=== PATIENT | female | born 1990 | race Caucasian/White ===

== ENCOUNTER 2022-02-04 19:38 | Emergency (ER) | payer OTHER, SELFPAY ==
--- NOTE | ~2022-02-04 | XR_ITS ---
EXAMINATION: XR KNEE, LEFT CLINICAL INFORMATION: Twisting knee pain, heard pop, unable to bear weight COMPARISON: None TECHNIQUE: Four views of the left knee. FINDINGS: Bones and soft tissues are normal. No fracture or joint effusion. Alignment is anatomic. Joint spaces are well maintained. No abnormal soft tissue calcification. XR/XR knee LT 4V IMPRESSION: Unremarkable plain radiographs of the left knee.
[2022-02-04 20:15] VITALS: BP 124/87; PULSE 82; RESP 16; TEMP 36.2; O2SAT 100; BMI 29.2
--- NOTE | 2022-02-04 21:53 | ED.LOWEXIN ---
HPI - Extremity Injury (Lower) General Chief Complaint: Extremity Injury, Lower Stated Complaint: left knee injury Time Seen by Provider: 02/04/22 21:53 Source: patient Mode of arrival: ambulatory Limitations: no limitations History of Present Illness HPI Narrative: 31-year-old female presents to the emergency department complaints of left knee pain status post softball related injury. Patient tells me she was going to slide into 3rd base then she changed her mind and jerked backwards she fell a pop in her knee falling to the ground, when she fell she did not hit her head. Patient tells me she initially felt pain however at this time she does not report pain she reports some discomfort with ambulation but she tells me it feels like her left knee is jelly. She denies numbness or tingling. She has no other medical complaints at this time. Denies headache, vision changes, nausea, vomiting, dizziness. Patient tells me when she fell she could not get up on her own and required help. MD complaint: knee injury Onset (ago): hour(s) (3) Place: street/outdoors (Softball) Severity: moderate Relieving factors: nothing Exacerbating factors: weight bearing Associated symptoms: snap/pop sensation Other symptoms: none Related Data Allergies Allergy/AdvReac Type Severity Reaction Status Date / Time Unable to Assess Allergy Unverified 02/04/22 22:12 Review of Systems Review of Systems: Constitutional : No Weight loss, No Fever, No Chills, No Fatigue, No Malaise ENT/Mouth : No sore throat, No Rhinorrhea Eyes: No Eye Pain, No Swelling, No Redness Cardiovascular : No Chest Pain, No SOB, No Dyspnea on Exertion, No Orthopnea, No Edema, No Palpitations Respiratory : No Cough, No Sputum, No Wheezing Gastrointestinal : No Nausea, No Vomiting, No Diarrhea, No Constipation, No abdominal Pain, No Hematochezia, No Melena Genitourinary : No Dysuria, No Urinary Frequency, No Hematuria, Musculoskeletal : + joint pain, No Myalgias, + Joint Swelling Skin : No Skin Lesions, No rash Neuro : No Weakness, No Numbness, No Dizziness, No Headache All other systems reviewed and are negative Yes all other systems are reviewed and are negative [facility] Past Medical History Attestation statement: The following information was validated with the patient. Source: old records reviewed and nursing notes reviewed Social History Social History Advance Directives: No Physical Exam Vital Signs: Vital Signs: Last Vital Signs Temp 97.2 F 02/04/22 20:15 Pulse 82 02/04/22 20:15 Resp 16 02/04/22 20:15 BP 124/87 02/04/22 20:15 Pulse Ox 100 02/04/22 20:15 O2 Del Method 02/04/22 20:15 BMI result Body Mass Index 29.2 Vital signs stable Appearance: Alert.? Oriented X3.? No acute distress.? Head: Normocephalic, atraumatic, no step-offs or deformities Eyes: Pupils equal, round and reactive to light.? ENT: Pharynx normal.? Neck: Normal inspection.? Neck supple.? CVS: Normal heart rate and rhythm.? Pulses normal.? Respiratory: No respiratory distress.? Breath sounds normal.? Abdomen: Soft and nontender.? Skin: Skin warm and dry.? Normal skin color.? Normal skin turgor.? Extremities: No lower extremity edema.? 5/5 strength to bilateral upper and lower extremities + pain with valgus and varus manipulation, positive Apley. Slight swelling noted to the left knee, normal right knee. No step-offs or deformities. Extremities warm. 2+ dorsalis pedis and posterior tibialis pulses equal and bilateral. 2+ patellar pulses equal in bilateral. No foot drop b/l. Back: No midline tenderness, no C-spine tenderness, full range of motion, no CVA tenderness bilaterally Neuro: Oriented X 3.? No motor deficit.? No sensory deficit. CN 2-12 intact Course Reevaluation(s) Reevaluation #1: Patient placed in a knee immobilizer, given crutches, educated on how to properly use them. Given Toradol for pain/discomfort. Advised to follow up with Orthopedics, explained to her that her x-rays were negative however there is concern for ligament or tendon involvement for that reason she will likely require an MRI for further evaluation. Advised her to not bear weight. At this time I feel comfortable discharge home outlined worrisome signs and symptoms on discharge. Time: 22:16 MDM - Extremity Injury (Lower) MDM Narrative Medical decision making narrative: [id number] 31-year-old female presents with a soft fall related injury reporting left knee pain worse with ambulation, prior to her arrival this happened. Physical examination with discomfort to left knee with valgus and varus manipulation, positive Apley test. No step-offs or deformities. Normal pulses, capillary refill intact. Neurovascularly intact. No foot drop. Patient tells me she is unable to bear weight on the left lower extremity. Concern for meniscus injury therefore patient will be placed in a knee immobilizer and will be given crutches. Reached out to Aixa jurado who agress with plan, patient will see ortho outpatient for fu Medical Records Attestation: I reviewed the patient's medical records. Lab Data Attestation: I reviewed the patient's lab results. Critical Care Time Critical Care Time Critical Care Time: Yes Total Critical Care Time: 35 Attestation: I attest to this time spent taking care of the patient, obtaining history, physical, reviewing labs, imaging, speaking to specialist. Discharge Plan Discharge Clinical Impression: Acute knee pain Patient Disposition: Home, Self-Care Instructions: Crutch Instructions (ED), Knee Pain (ED), R.I.C.E. Treatment (ED) Additional Instructions: Take your medications as prescribed. Follow-up with your primary care provider this week. Follow-up with orthopedics in 1-3 days. Return to the emergency department with new or worsening symptoms. Such as fevers, chills, chest pain, shortness of breath, nausea, vomiting, dizziness, headache, vision changes, lethargy, numbness, tingling, severe pain. Please take your knee brace off at night. You can take ibuprofen every 6 hours, Tylenol every 4 as needed for pain or discomfort. Your x-ray was normal however, there was concern for ligament or tendon injury based off of the mechanism of injury and her physical exam, you may require an MRI therefore you should follow-up with orthopedics as soon as possible. In case of emergency call 911 Referrals: [facility] [Provider Group] - 1 day Physician,Mike J [Primary Care Provider] - 2 days
[2022-02-04] MEDS: Ketorolac Tromethamine 15 MG/ML VIAL 30 MG IM (23:23)
== END 2022-02-05 00:17 | disposition home or self-care (01) ==
PROVIDERS: Emergency Provider Internal Medicine
DX: G89.11 Acute pain due to trauma (principal); M25.562 Pain in left knee
CPT/HCPCS: 73564; 96372; 99283; 99284; J1885

== ENCOUNTER 2022-02-20 09:51 | Outpatient (REF) | payer OTHER, SELFPAY ==
--- NOTE | ~2022-02-20 | MR_ITS ---
EXAMINATION: MR KNEE WITHOUT CONTRAST, LEFT CLINICAL INFORMATION: Sprain of anterior cruciate ligament. Stiffness and weakness. Instability of left knee. COMPARISON: None. TECHNIQUE: MRI of the knee without contrast was performed using routine sequences on a high-field scanner. FINDINGS: MENISCI: Medial Meniscus: There is a vertical longitudinal tear involving the peripheral third of the posterior horn of the medial meniscus extending to the tibial articular surface. Lateral Meniscus: There is a vertical tear of the posterior horn extending from the femoral to the tibial articular surface. LIGAMENTS: Cruciate: ACL: Complete tear of the anterior cruciate ligament with displaced torn fibers extending anteriorly. PCL: Intact. Collateral: Intact. EXTENSOR MECHANISM: Intact. ARTICULAR CARTILAGE/BONE: Patellofemoral Compartment: Minimal cartilage heterogeneity in the lateral facet and surface irregularity of the cartilage of the medial facet. Trochlear cartilage normal. Overall minimal patellofemoral arthrosis. Medial Compartment: Subchondral marrow edema noted along the peripheral medial weightbearing portion of the medial femoral condyle. Bone marrow edema along the posterior margin of the medial plateau compatible with bone contusion. Lateral Compartment: Bone marrow edema in the subchondral region of the sulcus terminalis of the femur and posterior aspect of the lateral plateau compatible with areas of bone contusion. JOINT FLUID AND BURSAE: There is some mild joint effusion. Miscellaneous: Mild ill-defined increased T2 signal within the vastus medialis and soleus compatible with muscle contusion or muscle strain. Edema noted posterior subcutaneous soft tissues. MR/MR knee LT wo con IMPRESSION: Acute tear of the anterior cruciate ligament with bone contusion pattern commonly seen with ACL tear. Tear of the posterior horn of the medial meniscus. Tear of the posterior horn of the lateral meniscus. Joint effusion. Muscle strain or contusion of the medial gastrocnemius and soleus.
== END 2022-02-20 09:52 | disposition home or self-care (01) ==
LOC: HO.MRI 09:51
PROVIDERS: Visit Provider Physician Assistant
DX: S83.512A Sprain of anterior cruciate ligament of left knee, initial encounter (principal); X58.XXXA Exposure to other specified factors, initial encounter; Y93.9 Activity, unspecified; Y92.9 Unspecified place or not applicable; Y99.9 Unspecified external cause status
CPT/HCPCS: 73721